=== PATIENT | male | born 1980 | race Caucasian/White ===

== ENCOUNTER 2020-02-02 08:41 | Emergency (ER) | payer MEDICAID ==
[~2020-02-02] VITALS: Ht 162.6 cm; Wt 79.4 kg
[2020-02-02] MEDS ORDERED: ONDANSETRON ODT4 MG PO (11:42)
== END 2020-02-02 11:56 | disposition home or self-care (01) ==
LOC: ED 08:41
DX: R11.2 Nausea with vomiting, unspecified (principal); R19.7 Diarrhea, unspecified; Z88.5 Allergy status to narcotic agent
CPT/HCPCS: 80053; 81001; 83690; 83735; 85025; 96361; 96374; 96376; 99284-25; J2405; J7030